=== PATIENT | female | born 1985 | race American Indian/Alaskan Native ===

== ENCOUNTER 2020-01-08 09:06 | Outpatient (CLI) | payer BC ==
[2020-01-08 10:18] LABS: Hemoglobin 12.4 gm/dl (10.1-14.3); Mean Corpuscular HGB Conc 33 % (30-34); Mean Corpuscular Volume 92 fl (79-97); Platelet Count 206 K/mm3 (140-440); Red Cell Distribution Width 13.5 % (13.2-15.2)
[2020-01-08 10:42] LABS: Alanine Aminotransferase 12 units/L (7-56); Albumin 3.8 g/dL (3.9-5); BUN/Creatinine Ratio 15; Blood Urea Nitrogen 12 mg/dL (7-17); Calcium 8.9 mg/dL (8.4-10.2); Hemolysis Index 26
--- NOTE | 2020-01-08 12:02 | Vascular Lab Report ---
DUPLEX DOPPLER LOWER EXTREMITY VEINS, BILATERAL INDICATION: elevated d dimer. TECHNIQUE: Duplex doppler imaging was performed through the veins of both lower extremities using venous ky poly and other maneuvers. COMPARISON: No relevant prior imaging study available. FINDINGS: Right Common femoral vein: Negative. Right Superficial femoral vein: Negative. Right Popliteal vein: Negative. Right Calf veins: Negative. Left Common femoral vein: Negative. Left Superficial femoral vein: Negative. Left Popliteal vein: Negative. Left Calf veins: Negative. Additional findings: None.. IMPRESSION: 1. No sonographic evidence for DVT in either lower extremity. Signer Name: Kris Majano MD Signed: 01/08/2020 11:58 AM Workstation Name: [id number]
--- NOTE | 2020-01-08 13:52 | Cat Scan Report ---
CT CHEST WITHOUT CONTRAST HISTORY: Persistent left upper lobe infiltrate. COMPARISON: No relevant comparison imaging. TECHNIQUE: Routine chest CT exam performed without contrast. The study was ordered with contrast but IV access could not be obtained. All CT scans at this location are performed using CT dose reduction for ALARA by means of automated exposure control. CONTRAST: None. FINDINGS: CT CHEST: Lungs: The lungs are clear. No pulmonary nodule or mass. Specifically, no left upper lobe abnormality . Trachea and Bronchi: No significant abnormality. Heart and Pericardium: No significant abnormality. Vasculature: No significant abnormality. Lymphatics: No lymphadenopathy. Osseous Structures: No suspicious bone lesions. Additional Findings: The upper abdomen is unremarkable. IMPRESSION: 1. Normal chest. 2. No left upper lobe abnormality. Signer Name: Daniel Celaya MD Signed: 01/08/2020 1:48 PM Workstation Name: [id number]
[2020-01-08 14:04] LABS: ABG Base Excess -3.1 mmol/L (-2.0-3.0); ABG HCO3 20.8 mmol/L (20.0-26.0); ABG Methemoglobin 0.5 % (0.0-1.5); ABG PCO2 33.3 mm Hg; ABG PH 7.414 pH Units (7.350-7.450); ABG PO2 83.5 mm Hg (80.0-90.0)
== END 2020-01-08 09:07 | disposition home or self-care (01) ==
LOC: LAB 09:06 → CT 09:06 → LAB 09:07
PROVIDERS: ATTEND Internal Medicine
DX: R91.8 Other nonspecific abnormal finding of lung field (principal); I34.1 Nonrheumatic mitral (valve) prolapse; R56.9 Unspecified convulsions; J30.9 Allergic rhinitis, unspecified; Z87.01 Personal history of pneumonia (recurrent)
CPT/HCPCS: 36415; 71250; 80053; 82803; 84436; 84443; 85027; 93970